=== PATIENT | male | born 1990 | race Caucasian/White ===

== ENCOUNTER 2020-09-19 05:10 | Emergency (ER) | payer MEDICAID ==
[~2020-09-19] VITALS: Ht 177.8 cm; Wt 74.0 kg
[2020-09-19] MEDS ORDERED: KETOROLAC 60MG/2ML VIAL IM ONE (06:45)
[2020-09-19 06:48] VITALS: BP 138/78
== END 2020-09-19 10:27 | disposition home or self-care (01) ==
LOC: ER 05:10
DX: M54.16 Radiculopathy, lumbar region (principal)
CPT/HCPCS: 96372; 99283; J1885

== ENCOUNTER 2020-09-19 10:33 | Emergency (ER) | payer MEDICAID ==
[~2020-09-19] VITALS: Ht 181.6 cm; Wt 86.0 kg
[2020-09-19 10:54] VITALS: BP 134/89
== END 2020-09-19 10:55 | disposition home or self-care (01) ==
LOC: ER 10:33
DX: M54.5 Low back pain (principal); Z87.440 Personal history of urinary (tract) infections; Z98.890 Other specified postprocedural states
CPT/HCPCS: 99281